=== PATIENT | male | born 1980 | race Caucasian/White ===

== ENCOUNTER 2020-05-16 10:53 | Outpatient (CLI) | payer BC, SELFPAY ==
[2020-05-16 13:04] LABS: D Dimer 0.31 ug/mIFEU (0-0.59)
== END 2020-05-16 10:54 | disposition home or self-care (01) ==
LOC: LAB 10:58
PROVIDERS: Visit Provider Nurse Practitioner Family
DX: R53.1 Weakness (principal); Z86.718 Personal history of other venous thrombosis and embolism
CPT/HCPCS: 85378

== ENCOUNTER 2020-10-04 16:00 | Emergency (ER) | payer BC, SELFPAY ==
[2020-10-04 16:12] VITALS: BP 122/79; PULSE 58; RESP 18; TEMP 36.6; O2SAT 99; BMI 38.0
--- NOTE | 2020-10-04 17:29 | ECG_ITS ---
[facility] Test Date: 2020-10-04 Pat Name: Jaydon Marin Department: Room: Gender: Male Competency Evaluated Nurse Aide: : 1980 Requested By: Jacoby Verde Order Number: [id number] Raissa MD: Will Willett M.D. Measurements Intervals [place] Rate: 49 P: 64 MI: 180 QRS: 68 QRSD: 104 T: 53 QT: 430 QTc: 392 Interpretive Statements SINUS BRADYCARDIA POSSIBLE INFERIOR MYOCARDIAL INFARCTION , PROBABLY OLD [30 ms Q WAVE IN II/aVF] Compared to ECG 06/29/2019 21:07:38 Myocardial infarct finding now present Electronically Signed On 10-05-2020 19:19:16 SAUSAGE COOKER by Will Willett M.D. [id number]
--- NOTE | 2020-10-04 17:35 | ED_ITS ---
HPI - Dizziness General: Chief Complaint: Dizziness Stated Complaint: DIZZY Time Seen by Provider: 10/04/20 17:26 History of Present Illness: HPI Narrative: Patient is a 40-year-old male who comes to the ED with dizziness. Patient says this started approximately 2 days ago. He reports feeling dizzy when he is up and ambulating. Dizziness is described as a spinning around the room. He says symptoms and dizziness get worse when he turns his head to the left or right. This morning when he woke up patient said he was sitting at the head of his bed and got really dizzy and had a syncopal episode. He fell back onto his bed from sitting position on bed so denies any head trauma or headaches. He states the syncopal episode was very brief and when he returned to consciousness he felt normal on at his baseline. Patient says for the past couple days he has been drinking a lot of coffee and not a lot of water or other fluids. Denies any seizure activity. Denies chest pain, shortness of breath, numbness or tingling to extremities or face, weakness to extremities or face, headache or vision changes. Associated symptoms: Denies chest pain, chills, headache(s), nausea, nasal congestion, palpitations or vomiting Associated neuro symptoms: Deny numbness in extremities Review of Systems Const: Denies: fever(s), chills or fatigue Eyes: Denies: change in vision or eye discomfort ENMT: Denies: throat pain, odynophagia, nasal discharge or nasal congestion Card: Reports: syncope (1 brief syncopal episode.); Denies: chest pain, palpitations, edema, swelling of feet/ankles, dyspnea on exertion or orthopnea Resp: Denies: dyspnea, productive cough or non-productive cough GI: Denies: abdominal pain, nausea, vomiting, diarrhea, constipation or hematochezia : Denies: flank pain, difficulty urinating, dysuria or hematuria Musc: Denies: neck pain, back pain or extremity swelling Skin/Breast: Denies: rash or new lesions Neuro: Reports: dizziness and vertigo; Denies: headache(s), numbness in extremities, weakness in extremities, sensory changes or seizure-like activity [facility] ED PFSH: Medical History Chronic knee pain Fatigue History of pulmonary embolism (~2005) History of smoking 30 or more pack years Insomnia Mood disorder Explosive Mood disorder Obesity (BMI 35.0-39.9 without comorbidity) PTSD (post-traumatic stress disorder) SOB (shortness of breath) on exertion Family History Other Cancer Diabetes Veronica Gehrig disease Social History Smoking and tobacco status: former smoker Alcohol intake: never Physical Exam Const: COMMON NORMALS: no acute distress, patient oriented x3, healthy appearing and alert GENERAL APPEARANCE: cooperative and comfortable HENMT: COMMON NORMALS: normocephalic HEAD & SCALP: normocephalic MOUTH: Normal oral and palatal mucosa present THROAT: posterior oropharynx normal and uvula midline Eye: COMMON NORMALS: Equal, round and reactive pupils present, EOMs intact bilaterally and conjunctivae normal CONJUNCTIVA: Yes conjunctivae normal PUPIL: Yes Equal, round and reactive pupils present Neck/C-Spine: COMMON NORMALS: supple GENERAL: Yes normal visual inspection Resp: COMMON NORMALS: normal respiratory effort, No retractions, No use of accessory muscles and clear to auscultation bilaterally AUSCULTATION: clear to auscultation bilaterally Cardio: COMMON NORMALS: regular rate, regular rhythm, S1 normal heart sound present, S2 normal heart sound present, No gallops present (Cardio), No clicks present (Cardio), No murmurs present (Cardio) and Peripheral pulses 2+ throughout RATE: regular rate RHYTHM: regular rhythm HEART SOUNDS: S1 normal heart sound present and S2 normal heart sound present PERIPHERAL PULSES: Peripheral pulses 2+ throughout GI: COMMON NORMALS: Normal to inspection, nondistended, normoactive bowel sounds present, Soft to palpation, non-tender and no masses PALPATION: Yes Soft to palpation : COMMON NORMALS: Yes no CVA tenderness BLADDER/KIDNEY EXAM: Yes no CVA tenderness Back/Pelvis: COMMON NORMALS: no CVA tenderness Extremity: COMMON NORMALS: normal to inspection and no pedal edema Neuro: COMMON NORMALS: patient oriented x3, CN's II-XII intact bilaterally, moves all extremities and no focal motor deficits SENSORIUM/ORIENTATION: Yes alert SPEECH: speech normal MOTOR EXAM: 5/5 motor strength present throughout Skin: GENERAL SKIN EXAM: dry skin Course Vital Signs: Vital signs: Vital Signs Temperature 97.8 F 10/04/20 16:12 Pulse Rate 51 L 10/04/20 21:00 Respiratory Rate 13 10/04/20 21:00 Blood Pressure 121/97 10/04/20 21:00 Pulse Oximetry 99 10/04/20 21:00 MDM - Dizziness MDM Narrative: Medical decision making narrative: Patient is a 40-year-old male who comes to the ED with dizziness and syncopal episode. He describes dizziness as positional and spinning around the room. He did highlight that he is not drink much water over the past couple days and has been drinking a lot of coffee. Patient denies any chest pain, shortness of breath or any other neuro symptoms. He had a syncopal episode while sitting on his bed after he got up in the morning due to spinning. Exam shows a healthy 40-year-old male in no acute distress or pain. He appears nontoxic. Neuro exam normal and lungs clear to auscultation bilaterally. CBC was unremarkable. Sodium 131 and the rest of CMP was unremarkable. EKG showed no acute signs of [place] and troponin negative. Head CT showed no acute findings. Patient was given IV fluids 1 L and a dose of meclizine. Patient says his symptoms of dizziness improved. Patient was diagnosed with postural dizziness with near syncope and told to follow-up with his PCP in 7 to 10 days for reevaluation. He was discharged with a prescription for meclizine. Return to ED precautions given. Patient understood agree with plan. Lab Data: Attestation: I reviewed the patient's lab results. Labs: Lab Results 10/04/20 10/04/20 10/04/20 Range/Units 17:54 17:54 17:54 WBC 7.4 (4.0-10.0) 10^3/ uL RBC 4.96 (4.1-5.3) 10^6/u L Hgb 14.8 (11.7-16.6) g/dL Hct 43.8 (42.0-52.0) % MCV 88.3 (80-94) fL MCH 29.8 (28.0-34.0) pg MCHC 33.8 (30.0-36.0) g/dL RDW 13.4 (12.1-15.1) % Plt Count 275 (130-400) 10^3/c mm MPV 9.7 (7.4-10.4) fL Neut % (Auto) 60.4 % Lymph % (Auto) 29.4 % [place] % (Auto) 7.8 % Eos % (Auto) 1.6 % Baso % (Auto) 0.5 % Neut # (Auto) 4.44 (1.8-7.7) 10^3/u L Lymph # (Auto) 2.2 (0.8-4.8) 10^3/u L [place] # (Auto) 0.6 (0.2-0.9) 10^3/u L Eos # (Auto) 0.1 (0.0-0.8) 10^3/u L Baso # (Auto) 0.0 (0.0-0.1) 10^3/u L Nucleated RBC % (a uto) 0 % Nucleated RBCs # 0.0 /100WBC Sodium 131 L (136-145) mmol/L Potassium 3.8 (3.5-5.1) mmol/L Chloride 93 L (98-107) mmol/L Carbon Dioxide 29 (22-29) mmol/L Anion Gap 12.8 (5-19) BUN 6 (6-20) mg/dL Creatinine 0.6 L (0.7-1.2) mg/dL GFR Calculation 148.5 H (90-130) mL/min Glucose 90 (65-115) mg/dL Calculated Osmolal ity 269 L (285-295) mOsm/k g Calcium 8.7 (8.5-10.5) mg/dL Total Bilirubin 0.3 (0.15-1.2) mg/dL AST 15 (0-40) U/L ALT 17 (0-41) U/L Alkaline Phosphata se 94 (40-130) IU/L Troponin T Gen 5 n g/L 6 (0-15) ng/L Total Protein 7.5 (6.6-8.7) g/dL Albumin 4.5 (3.5-5.2) g/dL Globulin 3.0 (1.3-4.6) g/dL Imaging Data^: CXR: Attestation: I personally reviewed and interpreted this imaging study as follows: Radiologist's impression: [address] [address] XRay Report Signed Patient: Jaydon Marin Unit #: [id number] : 1980 Age/Sex: 40 / M ADM Date: 10/04/20 Loc: ER Room/Bed: Attending Dr: Ordering Provider/Ordering MD: Jacoby Verde Date of Service: 10/04/20 Procedure(s): XR chest 1V portable [id number] Accession Number(s): [id number] Report Number: [id number] PROCEDURE INFORMATION: Exam: XR Chest, 1 View Exam date and time: 10/04/2020 6:04 PM Age: 40 years old Clinical indication: Other: Dizzy/syncope; Additional info: Dizziness/syncope TECHNIQUE: Imaging protocol: XR of the chest Views: 1 view. COMPARISON: CR Chest 1 [place] [id number] 06/29/2019 6:32 PM FINDINGS: Lungs: Well inflated and clear. Pleural spaces: Unremarkable. No pleural effusion. No pneumothorax. Heart/Mediastinum: The cardiac shadow is borderline enlarged. Bones/joints: No acute abnormality. XR/XR chest 1V portable [id number] IMPRESSION: Borderline enlargement of the cardiac shadow. Otherwise normal exam. Dictated By: Hussein Barnes Signed By: Hussein Barnes Signed Date/Time: 10/04/201903 DD/ 01 CT Head: Attestation: I personally reviewed and interpreted this imaging study as follows: Radiologist's impression: [address] [address] [address] Scan Report Signed Patient: Jaydon Marin Unit #: [id number] : 1980 Age/Sex: 40 / M ADM Date: 10/04/20 Loc: ER Room/Bed: Attending Dr: Ordering Provider/Ordering MD: Jacoby Verde Date of Service: 10/04/20 Procedure(s): CT head wo con* [id number] Accession Number(s): [id number] Report Number: [id number] PROCEDURE INFORMATION: Exam: CT Head Without Contrast Exam date and time: 10/04/2020 6:08 PM Age: 40 years old Clinical indication: Patient HX: Dizziness x 2 days TECHNIQUE: Imaging protocol: Computed tomography of the head without contrast. Radiation optimization: All CT scans at this facility use at least one of these dose optimization techniques: automated exposure control; mA and/or kV adjustment per patient size (includes targeted exams where dose is matched to clinical indication); or iterative reconstruction. COMPARISON: CT head wo con* [id number] 09/10/2017 6:42 PM RADIATION DOSE METRICS: Total DLP (mGy-cm): 907.21 FINDINGS: Brain: No evidence of acute infarct. No mass or mass effect. No intra axial hemorrhage. No extra axial fluid collection or hemorrhage. Cerebral ventricles: Symmetric and without enlargement. Bones/joints: No acute fracture. Paranasal sinuses: Visualized sinuses are well aerated. Mastoid air cells: Visualized mastoid air cells are well aerated. Soft tissues: No concerning abnormalities. CT/CT head wo con* [id number] IMPRESSION: No acute intracranial abnormality. Radiation Dose CTDIVOL = (mGy): DLP = 907.21 (mGy-cm) Dictated By: Hussein Barnes Signed By: Hussein Barnes Signed Date/Time: 10/04/201903 DD/ 02 EKG Data^: EKG 1: Attestation: I personally reviewed and interpreted this EKG as follows: EKG interpretation date: 10/04/20 Interpretation: Sinus bradycardia, 49 bpm, no ST segment elevation or depression seen. Discharge Plan Discharge Patient Disposition: Home Clinical Impression: Postural dizziness with near syncope Condition: Stable Prescriptions: New meclizine 25 mg tablet 25 mg PO BID PRN (Reason: dizziness) Qty: 30 RF: 0 No Action oxcarbazepine 300 mg tablet See Rx Instructions .ROUTE .COMPLEX RF: 0 diazepam 10 mg tablet 10 mg PO QID@06,10,14,18 RF: 0 trazodone 300 mg tablet 300 mg PO BEDTIME@2200 RF: 0 Discharge Orders: Discharge ED (Routine); Ordered 10/04/20 Ordered By: Jacoby Verde Referrals: Cathleen Dillard DO [Primary Care Provider] - Discharge Diet: Regular Discharge Activity: Increase activity as tolerated Patient Instructions: Benign Paroxysmal Positional Vertigo (ED), Dizziness (ED) Activity Restrictions/Additional Instructions: Follow-up with medical provider as directed in 7 to 10 days for reevaluation. Make sure you are drinking plenty of fluids and staying hydrated. Cut back on caffeinated beverages daily. Take medications as prescribed. Return to the ER or your medical provider if condition worsens. Please read and understand discharge instructions. If any questions, please ask. Coding Level of Care Code ED Block Piler for [place] Exam Comprehensive
--- NOTE | 2020-10-04 17:49 | XRR_ITS ---
PROCEDURE INFORMATION: Exam: XR Chest, 1 View Exam date and time: 10/04/2020 6:04 PM Age: 40 years old Clinical indication: Other: Dizzy/syncope; Additional info: Dizziness/syncope TECHNIQUE: Imaging protocol: XR of the chest Views: 1 view. COMPARISON: CR Chest 1 [place] [id number] 06/29/2019 6:32 PM FINDINGS: Lungs: Well inflated and clear. Pleural spaces: Unremarkable. No pleural effusion. No pneumothorax. Heart/Mediastinum: The cardiac shadow is borderline enlarged. Bones/joints: No acute abnormality. XR/XR chest 1V portable [id number] IMPRESSION: Borderline enlargement of the cardiac shadow. Otherwise normal exam.
--- NOTE | 2020-10-04 17:49 | CTR_ITS ---
PROCEDURE INFORMATION: Exam: CT Head Without Contrast Exam date and time: 10/04/2020 6:08 PM Age: 40 years old Clinical indication: Patient HX: Dizziness x 2 days TECHNIQUE: Imaging protocol: Computed tomography of the head without contrast. Radiation optimization: All CT scans at this facility use at least one of these dose optimization techniques: automated exposure control; mA and/or kV adjustment per patient size (includes targeted exams where dose is matched to clinical indication); or iterative reconstruction. COMPARISON: CT head wo con* [id number] 09/10/2017 6:42 PM RADIATION DOSE METRICS: Total DLP (mGy-cm): 907.21 FINDINGS: Brain: No evidence of acute infarct. No mass or mass effect. No intra axial hemorrhage. No extra axial fluid collection or hemorrhage. Cerebral ventricles: Symmetric and without enlargement. Bones/joints: No acute fracture. Paranasal sinuses: Visualized sinuses are well aerated. Mastoid air cells: Visualized mastoid air cells are well aerated. Soft tissues: No concerning abnormalities. CT/CT head wo con* [id number] IMPRESSION: No acute intracranial abnormality. Radiation Dose CTDIVOL = (mGy): DLP = 907.21 (mGy-cm)
[2020-10-04 18:05] LABS: Basophils % 0.5 %; Eosinophils # 0.1 10^3/uL (0.0-0.8); Eosinophils % 1.6 %; Hematocrit 43.8 % (42.0-52.0); Hemoglobin 14.8 g/dL (11.7-16.6); Lymphocytes # 2.2 10^3/uL (0.8-4.8); Lymphocytes % 29.4 %; Mean Corpuscular HGB Conc 33.8 g/dL (30.0-36.0); Mean Corpuscular Hemoglobin 29.8 pg (28.0-34.0); Mean Corpuscular Volume 88.3 fL (80-94); Mean Platelet Volume 9.7 fL (7.4-10.4); Monocytes # 0.6 10^3/uL (0.2-0.9); Monocytes % 7.8 %; Neutrophils # 4.44 10^3/uL (1.8-7.7); Neutrophils % 60.4 %; Nucleated Red Blood Cells % 0 %; Platelet Count 275 10^3/cmm (130-400); Red Blood Count 4.96 10^6/uL (4.1-5.3); Red Cell Distribution Width 13.4 % (12.1-15.1); White Blood Count 7.4 10^3/uL (4.0-10.0)
--- NOTE | 2020-10-04 18:12 | PC.NURSE ---
EKG done at 1752 and shown to ER doctor
[2020-10-04 18:34] LABS: Alanine Aminotransferase 17 U/L (0-41); Albumin Level 4.5 g/dL (3.5-5.2); Alkaline Phosphatase 94 IU/L (40-130); Anion Gap 12.8 (5-19); Aspartate Amino Transferase 15 U/L (0-40); Blood Urea Nitrogen 6 mg/dL (6-20); Calcium 8.7 mg/dL (8.5-10.5); Carbon Dioxide 29 mmol/L (22-29); Chloride 93 mmol/L (98-107); Glomerular Filtration Rate 148.5 mL/min (90-130); Glucose 90 mg/dL (65-115); Osmolality Calculated 269 mOsm/kg (285-295); Potassium 3.8 mmol/L (3.5-5.1); Sodium 131 mmol/L (136-145); Total Bilirubin 0.3 mg/dL (0.15-1.2); Total Protein 7.5 g/dL (6.6-8.7); Troponin T (5th) Once 6 ng/L (0-15)
[2020-10-04 19:18] VITALS: BP 127/78; PULSE 53; RESP 16; O2SAT 100
[2020-10-04] MEDS: sodium chloride 0.9% 1,000 ML 999 ML IV (19:19)
[2020-10-04] MEDS: meclizine 25 mg tablet 50 MG PO (19:20)
[2020-10-04 21:00] VITALS: BP 121/97; PULSE 51; RESP 13; O2SAT 99
== END 2020-10-04 21:01 | disposition home or self-care (01) ==
PROVIDERS: Emergency Provider Physician Assistant; PCP Family Medicine
DX: R42 Dizziness and giddiness (principal); R55 Syncope and collapse; E66.9 Obesity, unspecified; F43.10 Post-traumatic stress disorder, unspecified; Z87.891 Personal history of nicotine dependence
CPT/HCPCS: 70450; 71045; 80053; 84484; 85025; 93005; 96360; 99284; J7030; J8597

== ENCOUNTER 2021-11-21 13:25 | Emergency (ER) | payer BC, SELFPAY ==
[2021-11-21 13:30] VITALS: BP 133/82; PULSE 57; RESP 16; TEMP 36.6; O2SAT 98; BMI 36.2
--- NOTE | 2021-11-21 13:50 | PC.NURSE ---
DR. MELVIN REVIEWED EKG TAKEN IN TRIAGE AT 1338.
[2021-11-21 14:05] VITALS: BP 138/75; PULSE 53; RESP 16; O2SAT 96
--- NOTE | 2021-11-21 14:08 | ECG_ITS ---
[facility] Test Date: 2021-11-21 Pat Name: Jaydon Marin Department: Room: Gender: Male Outcome Analyst: : 1980 Requested By: Godfrey Matta Order Number: [id number] Raissa MD: Will Willett M.D. Measurements Intervals [place] Rate: 58 P: 62 [place]: 170 QRS: 71 QRSD: 105 T: 44 QT: 404 QTc: 400 Interpretive Statements SINUS BRADYCARDIA Compared to ECG 10/04/2020 17:55:58 No significant changes Electronically Signed On 11-21-2021 17:17:35 CDT by Will Willett M.D. [id number]
--- NOTE | 2021-11-21 14:08 | CT_ITS ---
WS: [id number] CT CHEST ANGIOGRAPHY WITH REFORMATS HISTORY: sob TECHNIQUE: Contiguous axial images are obtained through the chest during arterial injection of intrav enous contrast. Images are reconstructed to evaluate the pulmonary arteries. MIP imaging also reviewe d. All CT scans at [facility] use at least one of these dose optimization techniques: automat ed exposure control; mA and/or kV adjustment per patient size (includes targeted exams where dose is matched to clinical indication); or iterative reconstruction. CONTRAST: Omnipaque 350; 91 mL IV. DLP: 629.22 mGy.cm COMPARISON: 09/10/2017 Limited opacification of the pulmonary arteries due to timing of the bolus. No central pulmonary embo lism. Beyond the lobar branches the opacification is variable. No dilated pulmonary artery. No RIGHT heart strain. Normal size aorta. Mild enlargement of the LEFT heart chambers. No mediastinal or hilar adenopathy. No pericardial or pleural effusions. No pneumonia. Upper abdomen is negative. No osseous abnormality. CT/CT angio chest PE protcl [id number] IMPRESSION: No pulmonary embolism identified. Beyond the segmental branches opacification i s limited.
--- NOTE | 2021-11-21 14:10 | W.ED.CHESTPA ---
HPI - Chest Pain General: Chief Complaint: Chest Pain Stated Complaint: Chest pains, coldness in rt arm with pressure Time Seen by Provider: 11/21/21 13:52 History of Present Illness: Patient comes in with chest pain that started yesterday which he describes as sharp pinprick sensation that was in the left side yesterday then went away and now is in the right side of his chest today. States he also feels a cold sensation goes down his arm. He denies any cardiac history, however he was treated for a pulmonary embolism years ago which prompted him to stop smoking. Denies any cold symptoms including fever, cough, congestion, vomiting, diarrhea. Physical exam is unremarkable. Will check labs, CTA chest, EKG, and reassess. Associated symptoms: Deny abdominal pain, dyspnea, fever(s), nausea, palpitations or vomiting Review of Systems Const: Denies: fever(s) or body aches Eyes: Denies: change in vision or blurry vision ENMT: Denies: throat pain or odynophagia Card: Reports: chest pain; Denies: palpitations Resp: Denies: dyspnea or productive cough GI: Denies: abdominal pain, nausea or vomiting : Denies: flank pain or dysuria Musc: Denies: neck pain or back pain Skin/Breast: Denies: rash or pruritus Neuro: Denies: headache(s) or numbness in extremities Psych: Denies: anxiety or change in appetite Endo: Denies: polyuria or excessive sweating PFS ED PFSH: Medical History (Updated 11/21/21 @ 17:01 by Godfrey Matta MD) Chronic knee pain Improved. Fatigue History of pulmonary embolism (~2005) On anticoagulation for 5 years. History of smoking 30 or more pack years Quit in 2005 Insomnia Mood disorder Explosive Mood disorder Obesity (BMI 35.0-39.9 without comorbidity) PTSD (post-traumatic stress disorder) SOB (shortness of breath) on exertion Family History Other Cancer Diabetes Veronica Gehrig disease Social History Smoking and tobacco status: former smoker Alcohol intake: never Physical Exam Const: COMMON NORMALS: no acute distress, patient oriented x3, healthy appearing and alert HENMT: COMMON NORMALS: normocephalic and atraumatic HEAD & SCALP: normocephalic and atraumatic Eye: COMMON NORMALS: Equal, round and reactive pupils present and EOMs intact bilaterally PUPIL: Yes Equal, round and reactive pupils present Neck/C-Spine: COMMON NORMALS: full ROM and supple Resp: COMMON NORMALS: normal respiratory effort, No retractions and No use of accessory muscles Cardio: COMMON NORMALS: regular rate and regular rhythm RATE: regular rate RHYTHM: regular rhythm GI: COMMON NORMALS: Normal to inspection, nondistended, normoactive bowel sounds present, Soft to palpation and non-tender PALPATION: Yes Soft to palpation Back/Pelvis: COMMON NORMALS: thoracic and lumbar spine normal to inspection and no thoracic nor lumbar tenderness Extremity: COMMON NORMALS: normal to inspection and full ROM Neuro: COMMON NORMALS: patient oriented x3 SENSORIUM/ORIENTATION: Yes alert Psych: COMMON NORMALS: mental status grossly normal and cooperative Skin: COMMON NORMALS: no rashes or lesions noted and no wounds GENERAL SKIN EXAM: no rashes or lesions noted Course Vital Signs: Vital signs: Vital Signs Temperature 97.9 F 11/21/21 13:30 Pulse Rate 55 L 11/21/21 14:35 Respiratory Rate 15 11/21/21 14:35 Blood Pressure 115/70 11/21/21 14:35 Pulse Oximetry 97 11/21/21 14:35 MDM - Chest Pain Medical Decision Making Patient comes in with nausea and vomiting as well as generalized weakness. States she was seen here yesterday after a fall and had a negative work-up. States that since then she has continued to have some nausea and does not feel well. States that she has nobody at home to help her so she came to the emergency department to be admitted to the hospital. On physical exam she has dry mucous membranes, and tachycardia. Will check labs, give IV fluids, and reassess. On reassessment I talked to the patient about the test results. Will discharge home at this time with precautions to return for worsening or changing symptoms. Lab Data : 11/21/21 14:15 11/21/21 14:15 Radiology Impressions Chest CTA 11/21/21 14:08 IMPRESSION: No pulmonary embolism identified. Beyond the segmental branches opacification is limited. Laboratory Results WBC 7.4 10^3/uL (4.0-10.0) 11/21/21 14:15 RBC 4.92 10^6/uL (4.1-5.3) 11/21/21 14:15 Hgb 14.5 g/dL (11.7-16.6) 11/21/21 14:15 Hct 43.7 % (42.0-52.0) 11/21/21 14:15 MCV 88.8 fl (80-94) 11/21/21 14:15 MCH 29.5 pg (28.0-34.0) 11/21/21 14:15 MCHC 33.2 g/dL (30.0-36.0) 11/21/21 14:15 RDW 13.7 % (12.1-15.1) 11/21/21 14:15 Plt Count 260 10^3/cmm (130-400) 11/21/21 14:15 MPV 9.6 fL (7.4-10.4) 11/21/21 14:15 Neut % (Auto) 72.6 % 11/21/21 14:15 Lymph % (Auto) 19.6 % 11/21/21 14:15 [place] % (Auto) 6.1 % 11/21/21 14:15 Eos % (Auto) 0.9 % 11/21/21 14:15 Baso % (Auto) 0.5 % 11/21/21 14:15 Neut # (Auto) 5.35 10^3/uL (1.8-7.7) 11/21/21 14:15 Lymph # (Auto) 1.5 10^3/uL (0.8-4.8) 11/21/21 14:15 [place] # (Auto) 0.5 10^3/uL (0.2-0.9) 11/21/21 14:15 Eos # (Auto) 0.1 10^3/uL (0.0-0.8) 11/21/21 14:15 Baso # (Auto) 0.0 10^3/uL (0.0-0.1) 11/21/21 14:15 Nucleated RBC % (auto) 0 % 11/21/21 14:15 Nucleated RBCs # 0.0 /100WBC 11/21/21 14:15 Sodium 130 mmol/L (136-145) L 11/21/21 14:15 Potassium 3.7 mmol/L (3.5-5.1) 11/21/21 14:15 Chloride 93 mmol/L (98-107) L 11/21/21 14:15 Carbon Dioxide 26 mmol/L (22-29) 11/21/21 14:15 Anion Gap 14.7 (5-19) 11/21/21 14:15 BUN 13 mg/dL (6-20) 11/21/21 14:15 Creatinine 0.7 mg/dL (0.7-1.2) 11/21/21 14:15 GFR Calculation 123.7 mL/min (90-130) 11/21/21 14:15 Glucose 96 mg/dL (65-115) 11/21/21 14:15 Calculated Osmolality 270 mOsm/kg (285-295) L 11/21/21 14:15 Calcium 9.2 mg/dL (8.5-10.5) 11/21/21 14:15 Total Bilirubin 0.3 mg/dL (0.15-1.2) 11/21/21 14:15 AST 15 U/L (0-40) 11/21/21 14:15 ALT 15 U/L (0-41) 11/21/21 14:15 Alkaline Phosphatase 68 IU/L (40-130) 11/21/21 14:15 Troponin T Baseline 6 ng/L (0-15) 11/21/21 14:15 Troponin T 120 Minute 6.86 ng/L (0-15) 11/21/21 16:02 Delta Troponin T 0.86 ABS# (0-10) 11/21/21 16:02 Total Protein 6.7 g/dL (6.6-8.7) 11/21/21 14:15 Albumin 4.6 g/dL (3.5-5.2) 11/21/21 14:15 Globulin 2.1 g/dL (1.3-4.6) 11/21/21 14:15 Discharge Plan Discharge Patient Disposition: Home Clinical Impression: Nonspecific chest pain Condition: Stable Prescriptions: No Action oxcarbazepine 300 mg tablet 300 mg PO BID 0RF diazepam 10 mg tablet 10 mg PO QID@06,10,14,18 0RF trazodone 300 mg tablet 300 mg PO BEDTIME@2200 0RF Fiber Gummies 2 gram Tablet,Chewable 2 g PO DAILY 0RF Discharge Orders: Discharge ED (Routine); Ordered 11/21/21 Ordered By: Godfrey Matta Referrals: Cathleen Dillard DO [Primary Care Provider] - Coding Level of Care Code ED Senior Accounting Specialist for Chg Fwd Exam Comprehensive
[2021-11-21 14:29] LABS: Basophils % 0.5 %; Eosinophils # 0.1 10^3/uL (0.0-0.8); Eosinophils % 0.9 %; Hematocrit 43.7 % (42.0-52.0); Hemoglobin 14.5 g/dL (11.7-16.6); Lymphocytes # 1.5 10^3/uL (0.8-4.8); Lymphocytes % 19.6 %; Mean Corpuscular HGB Conc 33.2 g/dL (30.0-36.0); Mean Corpuscular Hemoglobin 29.5 pg (28.0-34.0); Mean Corpuscular Volume 88.8 fl (80-94); Mean Platelet Volume 9.6 fL (7.4-10.4); Monocytes # 0.5 10^3/uL (0.2-0.9); Monocytes % 6.1 %; Neutrophils # 5.35 10^3/uL (1.8-7.7); Neutrophils % 72.6 %; Nucleated Red Blood Cells % 0 %; Platelet Count 260 10^3/cmm (130-400); Red Blood Count 4.92 10^6/uL (4.1-5.3); Red Cell Distribution Width 13.7 % (12.1-15.1); White Blood Count 7.4 10^3/uL (4.0-10.0)
[2021-11-21 14:35] VITALS: BP 115/70; PULSE 55; RESP 15; O2SAT 97
[2021-11-21 14:49] LABS: Alanine Aminotransferase 15 U/L (0-41); Albumin Level 4.6 g/dL (3.5-5.2); Alkaline Phosphatase 68 IU/L (40-130); Anion Gap 14.7 (5-19); Aspartate Amino Transferase 15 U/L (0-40); Blood Urea Nitrogen 13 mg/dL (6-20); Calcium 9.2 mg/dL (8.5-10.5); Carbon Dioxide 26 mmol/L (22-29); Chloride 93 mmol/L (98-107); Globulin 2.1 g/dL (1.3-4.6); Glomerular Filtration Rate 123.7 mL/min (90-130); Glucose 96 mg/dL (65-115); Osmolality Calculated 270 mOsm/kg (285-295); Potassium 3.7 mmol/L (3.5-5.1); Sodium 130 mmol/L (136-145); Total Bilirubin 0.3 mg/dL (0.15-1.2); Total Protein 6.7 g/dL (6.6-8.7); Troponin(5th) Baseline 6 ng/L (0-15)
[2021-11-21 16:36] LABS: Troponin 5 2HR 6.86 ng/L (0-15)
[2021-11-21 16:38] LABS: Troponin 5 2HR Delta 0.86 ABS# (0-10)
== END 2021-11-21 17:20 | disposition home or self-care (01) ==
PROVIDERS: Emergency Provider Emergency Medicine; PCP Family Medicine
DX: R07.9 Chest pain, unspecified (principal); Z87.891 Personal history of nicotine dependence
CPT/HCPCS: 71275; 80053; 84484; 85025; 93005; 99283

== ENCOUNTER 2022-05-25 11:53 | Emergency (ER) | payer OTHER, SELFPAY ==
[2022-05-25 12:02] VITALS: BP 142/88; PULSE 59; RESP 16; TEMP 36.2; O2SAT 99
--- NOTE | 2022-05-25 12:51 | XR_ITS ---
WS: [id number] XR thoracic spine 3V* [id number] REASON FOR EXAM: injury to mid back with pain and tenderness FINDINGS: Normal thoracic spine curvature. No vertebral body abnormality. Intervertebral disc spaces are relatively well-preserved. XR/XR thoracic spine 3V* [id number] IMPRESSION: No acute abnormality.
--- NOTE | 2022-05-25 12:56 | W.ED.BACK ---
HPI - Back Pain/Injury General: Chief Complaint: Back Pain/Injury Stated Complaint: Abd/back/neck pain from work accident Time Seen by Provider: 05/25/22 12:08 History of Present Illness: Patient is a 41-year-old male comes to the ED with back pain. Symptoms started today. 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 Since injury earlier this morning he has had increasing pain in his mid back region that radiates around to his right flank. Symptoms worsen with any kind of movement of torso. Denies any nausea/vomiting, bladder or bowel symptoms. He has not taken anything for pain before coming to the ED. Denies any cauda equina symptoms. Associated symptoms: Deny abdominal pain, chills, dysuria, fatigue, fever(s), hematuria, nausea or vomiting Review of Systems Const: Denies: fever(s), chills or fatigue Eyes: Denies: change in vision or eye discomfort ENMT: Denies: throat pain, odynophagia, nasal discharge or nasal congestion Card: Denies: chest pain, palpitations, edema, swelling of feet/ankles, dyspnea on exertion or orthopnea Resp: Denies: dyspnea, productive cough or non-productive cough GI: Denies: abdominal pain, nausea, vomiting, diarrhea, constipation or hematochezia : Denies: flank pain, difficulty urinating, dysuria or hematuria Musc: Reports: back pain; Denies: neck pain or extremity swelling Skin/Breast: Denies: rash or new lesions Neuro: Denies: headache(s), numbness in extremities or weakness in extremities PFS ED PFSH: Medical History Chronic knee pain Improved. Fatigue History of pulmonary embolism (~2005) On anticoagulation for 5 years. History of smoking 30 or more pack years Quit in 2005 Insomnia Mood disorder Explosive Mood disorder No pertinent family history Obesity (BMI 35.0-39.9 without comorbidity) PTSD (post-traumatic stress disorder) SOB (shortness of breath) on exertion Family History Other Cancer Diabetes Veronica Gehrig disease Social History Smoking and tobacco status: former smoker Alcohol intake: never Physical Exam Const: COMMON NORMALS: no acute distress, patient oriented x3, healthy appearing and alert GENERAL APPEARANCE: cooperative and comfortable HENMT: COMMON NORMALS: normocephalic HEAD & SCALP: normocephalic MOUTH: Normal oral and palatal mucosa present THROAT: posterior oropharynx normal and uvula midline Neck/C-Spine: COMMON NORMALS: supple GENERAL: Yes normal visual inspection Resp: COMMON NORMALS: normal respiratory effort, No retractions, No use of accessory muscles and clear to auscultation bilaterally AUSCULTATION: clear to auscultation bilaterally Cardio: COMMON NORMALS: regular rate, regular rhythm, S1 normal heart sound present, S2 normal heart sound present, No gallops present (Cardio), No clicks present (Cardio), No murmurs present (Cardio) and Peripheral pulses 2+ throughout RATE: regular rate RHYTHM: regular rhythm HEART SOUNDS: S1 normal heart sound present and S2 normal heart sound present PERIPHERAL PULSES: Peripheral pulses 2+ throughout GI: COMMON NORMALS: Normal to inspection, nondistended, normoactive bowel sounds present, Soft to palpation, non-tender and no masses PALPATION: Yes Soft to palpation : COMMON NORMALS: Yes no CVA tenderness BLADDER/KIDNEY EXAM: Yes no CVA tenderness Back/Pelvis: COMMON NORMALS: no CVA tenderness THORACIC SPINE/UPPER BACK: Yes pain with ROM, Yes thoracic spinal tenderness T-spine tenderness location: T6, T7 and T8 and Yes paraspinal muscle tenderness Thoracic paraspinal muscle tenderness: bilateral Extremity: COMMON NORMALS: normal to inspection Neuro: COMMON NORMALS: patient oriented x3 SENSORIUM/ORIENTATION: Yes alert GAIT: Yes Normal gait present Skin: GENERAL SKIN EXAM: dry skin Course Vital Signs: Vital signs: Vital Signs Temperature 97.1 F L 05/25/22 12:02 Pulse Rate 59 L 05/25/22 12:02 Respiratory Rate 16 05/25/22 12:02 Blood Pressure 142/88 05/25/22 12:02 Pulse Oximetry 99 05/25/22 12:02 Oxygen Delivery Me thod 05/25/22 12:02 MDM - Back Pain/Injury Medical Decision Making Patient is a 41-year-old male comes to the ED with back pain. Symptoms started today. 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 Denies any cauda equina symptoms. Vitals stable. Exam of patient shows some T-spine tenderness around T6-7 and 8 along with paraspinal muscle tenderness of the T spine as well. X-ray of thoracic spine showed no acute abnormality. Patient was given dose of Toradol and Norflex here in the ED. He was stable for discharge home and diagnosed with strain of thoracic region and discharged home with a prescription for Celebrex and methocarbamol. Follow-up with PCP in the next week for reevaluation. Return to ED precautions given. Patient understood and agreed with plan. Labs Radiology Impressions Thoracic Spine X-Ray 05/25/22 12:51 IMPRESSION: No acute abnormality. Discharge Plan Discharge Patient Disposition: Home Clinical Impression: Strain of thoracic region Qualifiers: Encounter type: initial encounter Qualified Code(s): S29.019A - Strain of muscle and tendon of unspecified wall of thorax, initial encounter Condition: Stable Prescriptions: New methocarbamol 750 mg tablet 750 mg PO Q8H PRN (Reason: muscle spasms and pain) Qty: 20 0RF Celebrex 100 mg capsule 100 mg PO BID PRN (Reason: pain) Qty: 20 0RF No Action oxcarbazepine 300 mg tablet 300 mg PO BID diazepam 10 mg tablet 10 mg PO QID@06,10,14,18 trazodone 300 mg tablet 300 mg PO BEDTIME@2200 alprazolam [Xanax XR] 1 mg tablet extended release 24 hr 1 mg PO QID Discharge Orders: Discharge ED (Routine); Ordered 05/25/22 Ordered By: Jacoby Verde Referrals: Cathleen Dillard DO [Primary Care Provider] - Discharge Diet: Regular Discharge Activity: Increase activity as tolerated Patient Instructions: Muscle Strain (DC), Back Pain (ED) Activity Restrictions/Additional Instructions: Follow-up with medical provider as directed in the next 5 to 7 days reevaluation. Take medications as prescribed. Return to the ER or your medical provider if condition worsens. Please read and understand discharge instructions. Thank you for choosing [facility] for your healthcare needs today. Please realize this is an emergency room and that we are providing you with a medical screening exam and this may not be complete and all inclusive of all the testing and or work up that you may need to determine your ailment or severity of your illness. It is very important that you follow up as instructed or that you return to the Emergency Department should you have concerns or if your condition changes or worsens in any way. Stand Alone Forms: Work/School Release Coding Level of Care Code ED [employer] for [place] Exam Comprehensive
[2022-05-25] MEDS: ketorolac 60 mg/2 mL INJ IM (13:04)
[2022-05-25] MEDS: orphenadrine 30 mg/mL Inj 2 mL 60 MG IM (13:30)
== END 2022-05-25 14:01 | disposition home or self-care (01) ==
PROVIDERS: Emergency Provider Physician Assistant; PCP Family Medicine
DX: S29.019A Strain of muscle and tendon of unspecified wall of thorax, initial encounter (principal); E66.9 Obesity, unspecified; Z68.31 Body mass index [BMI] 31.0-31.9, adult; Z87.891 Personal history of nicotine dependence; X50.0XXA Overexertion from strenuous movement or load, initial encounter
CPT/HCPCS: 72072; 96372; 99284; J1885; J2360

== ENCOUNTER 2022-12-04 11:43 | Emergency (ER) | payer OTHER, SELFPAY ==
[2022-12-04 12:14] VITALS: BP 110/65; PULSE 53; RESP 16; TEMP 36.3; O2SAT 97; BMI 30.5
--- NOTE | 2022-12-04 12:35 | W.ED.NECK ---
HPI - Neck Pain/Injury General: Chief Complaint: Neck Pain/Injury Stated Complaint: neck injury Time Seen by Provider: 12/04/22 11:49 Source: patient Mode of arrival: ambulatory Limitations: no limitations History of Present Illness: Patient is a 42-year-old male who presents to the ED today with a Worker's Comp injury of neck pain. 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 Patient states since then he has had pain to the back of his neck mainly to the right side and down into his right shoulder. Pain seems to be worse with movement of the right shoulder and range of motion of the neck. He denies numbness, tingling, loss of sensation to the upper extremities. No other neurologic deficits or complaints. MD complaint: neck pain and upper back pain Onset (ago): hour(s) Place: work Radiation: right lateral and upper back Severity: moderate Duration: constant Relieving factors: none Exacerbating factors: movement of extremity and movement of neck Associated symptoms: Reports no associated symptoms; Denies headache(s) Treatments prior to arrival: ibuprofen Review of Systems Eyes: Denies: change in vision, blurry vision, floaters or seeing flashes ENMT: Denies: tinnitus Card: Denies: chest pain Resp: Denies: dyspnea Musc: Reports: neck pain and back pain; Denies: extremity pain, extremity swelling, joint pain or joint swelling Neuro: Denies: headache(s), numbness in extremities, weakness in extremities or sensory changes PFS ED PFSH: Medical History Chronic knee pain Improved. Fatigue History of pulmonary embolism (~2005) On anticoagulation for 5 years. History of smoking 30 or more pack years Quit in 2005 Insomnia Mood disorder Explosive Mood disorder No pertinent family history Obesity (BMI 35.0-39.9 without comorbidity) PTSD (post-traumatic stress disorder) SOB (shortness of breath) on exertion Family History Other Cancer Diabetes Veronica Gehrig disease Social History Smoking and tobacco status: former smoker Alcohol intake: never Physical Exam Const: COMMON NORMALS: no acute distress, average body habitus, patient oriented x3, no limitations, healthy appearing, alert and well nourished GENERAL APPEARANCE: cooperative ORIENTATION/CONSCIOUSNESS: Yes awake, Yes oriented to person, Yes oriented to place and Yes oriented to time HENMT: COMMON NORMALS: normocephalic and atraumatic HEAD & SCALP: normal to inspection, normocephalic and atraumatic FACE & SINUS: normal facial exam Eye: GENERAL EYE: appearance normal, both eyes and all related structures Neck/C-Spine: COMMON NORMALS: no lymphadenopathy and no meningeal signs GENERAL: Yes normal visual inspection, No anterior neck swelling and No submandibular swelling CERVICAL SPINE: Yes cervical ROM abnormal (limited secondary to pain), Yes pain with cervical ROM, No step off deformity, Yes Paracervical muscle tenderness and Yes Trapezius muscle tenderness Chest: COMMONS NORMALS: normal inspection of the chest and normal palpation of entire chest wall Resp: COMMON NORMALS: normal respiratory effort and clear to auscultation bilaterally AUSCULTATION: clear to auscultation bilaterally Cardio: COMMON NORMALS: regular rate and regular rhythm RATE: regular rate RHYTHM: regular rhythm Back/Pelvis: THORACIC SPINE/UPPER BACK: No thoracic spinal tenderness, Yes paraspinal muscle tenderness and No paraspinal muscle spasm LUMBAR SPINE/LOWER BACK: Yes normal to inspection, No lumbar spinal tenderness, No paraspinal muscle tenderness and No paraspinal muscle spasm OTHER: TTP over R trapezius musculature BACK IMAGE (MALE): 1. TTP; palpation and ROM of neck/shoulder reproduces patient's pain Extremity: COMMON NORMALS: normal to inspection, capillary refill normal, no joint enlargement, no clubbing, cyanosis or edema and no pedal edema GENERAL: Yes normal exam except as noted RIGHT UPPER EXTREMITY: Yes shoulder joint (pain to R lateral neck and to medial edge of scapula) Right shoulder: Yes Right shoulder joint neurovascular exam (normal) Neuro: COMMON NORMALS: patient oriented x3, moves all extremities, no focal motor deficits and no sensory deficits noted SENSORIUM/ORIENTATION: Yes alert, Yes oriented to person, Yes oriented to place and Yes oriented to time MENINGEAL SIGNS: Yes no meningeal signs MOTOR EXAM: 5/5 motor strength present throughout Skin: COMMON NORMALS: no rashes or lesions noted GENERAL SKIN EXAM: no rashes or lesions noted Course Vital Signs: Vital signs: Vital Signs Temperature 97.3 F L 12/04/22 12:14 Pulse Rate 53 L 12/04/22 12:14 Respiratory Rate 16 12/04/22 12:14 Blood Pressure 110/65 12/04/22 12:14 Pulse Oximetry 97 12/04/22 12:14 MDM - Neck Pain/Injury Medical Decision Making History and physical exam is consistent with musculoskeletal strain. He feels better after IM Toradol/Norflex/Dexamethasone. We will place him on NSAID/steroid for home use (he already takes valium daily) and recommend he follow-up with Worker's Comp. as directed. Discharge Plan Discharge Patient Disposition: Home Clinical Impression: Musculoskeletal neck pain Condition: Stable Prescriptions: New diclofenac sodium 50 mg tablet,delayed release (DR/EC) 50 mg PO Q12H PRN (Reason: pain) Qty: 20 0RF methylprednisolone [Medrol (Oc)] 4 mg tablets,dose pack See Rx Instructions .ROUTE .COMPLEX Qty: 21 0RF Rx Instructions: orally per package directions No Action diazepam 10 mg tablet 10 mg PO QID@06,10,14,18 trazodone 300 mg tablet 300 mg PO BEDTIME@2200 alprazolam [Xanax XR] 1 mg tablet extended release 24 hr 1 mg PO QID oxcarbazepine 600 mg tablet See Rx Instructions .ROUTE .COMPLEX Rx Instructions: 600 mg orally in the am amd 1200 mg at bedtime Ventolin HFA 90 mcg/actuation HFA aerosol inhaler 2 puff INHALATION Q4H PRN (Reason: Shortness Of Breath Or Wheezing) Discharge Orders: Discharge ED (Routine); Ordered 12/04/22 Ordered By: Kristi Morales Referrals: Cathleen Dillard DO [Primary Care Provider] - Coding Level of Care Code 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
[2022-12-04] MEDS: ketorolac 60 mg/2 mL INJ IM (12:57)
[2022-12-04] MEDS: orphenadrine 30 mg/mL Inj 2 mL 60 MG IM (12:57)
[2022-12-04] MEDS: dexamethasone 10 mg/mL INJ 8 MG IM (12:57)
--- NOTE | 2022-12-04 14:21 | PC.NURSE ---
Green top collected, skin prep with betadine.
[2022-12-04 14:35] VITALS: RESP 17; O2SAT 98
[2022-12-04 14:46] LABS: Alcohol Level < 10 mg/dL (0-10)
== END 2022-12-04 14:36 | disposition home or self-care (01) ==
PROVIDERS: Emergency Provider Physician Assistant; PCP Family Medicine
DX: M54.2 Cervicalgia (principal); Y99.0 Civilian activity done for income or pay
CPT/HCPCS: 80307; 96372; 99284; J1100; J1885; J2360

== ENCOUNTER 2022-12-06 08:24 | Emergency (ER) | payer OTHER, SELFPAY ==
--- NOTE | 2022-12-06 08:38 | W.ED.NECK ---
HPI - Neck Pain/Injury General: Chief Complaint: Neck Pain/Injury Stated Complaint: Neck injury Time Seen by Provider: 12/06/22 08:31 History of Present Illness: Mr. Marin is a 42-year-old gentleman who presented to the emergency department for neck injury reassessment. He was seen and evaluated on 12/04, he reports being at work and lifting over his head when he had onset of burning pain on the right side of his neck. This pain worsened and seem to be worse with swallowing and any range of motion or palpation. On ED assessment diagnosed with musculoskeletal pain and mildly improved with ED treatment and for discharge for follow-up. Despite home treatments symptoms have worsened. He reports continued right-sided neck pain and cervical spine midline pain. Pain with range of motion and a popping sensation. Denies new associated other neurologic deficits. No history of neck injuries. No other specific changes in health, exacerbating, or alleviating factors identified. Onset (ago): day(s) Place: work Severity: moderate Quality: burning, sharp, aching and other Duration: progressively worsening Relieving factors: none Exacerbating factors: movement of neck and swallowing Context: lifting Associated symptoms: Reports no associated symptoms Review of Systems General: Reports: 10 or more systems reviewed and unremarkable except in HPI and below PFSH ED PFSH: Medical History (Updated 12/09/22 @ 22:11 by Juana Moss MD) Anxiety disorder Chronic knee pain Improved. Fatigue History of pulmonary embolism (~2005) On anticoagulation for 5 years. History of smoking 30 or more pack years Quit in 2005 Insomnia Mood disorder Explosive Mood disorder No pertinent family history Obesity (BMI 35.0-39.9 without comorbidity) PTSD (post-traumatic stress disorder) SOB (shortness of breath) on exertion Family History Other Cancer Diabetes Veronica Gehrig disease Social History Smoking and tobacco status: former smoker Alcohol intake: never Substance/Drug Use: never Physical Exam Const: COMMON NORMALS: alert GENERAL APPEARANCE: cooperative and well developed HENMT: COMMON NORMALS: normocephalic and atraumatic HEAD & SCALP: normocephalic and atraumatic Eye: COMMON NORMALS: conjunctivae normal CONJUNCTIVA: Yes conjunctivae normal SCLERA: sclerae normal Neck/C-Spine: COMMON NORMALS: supple GENERAL: Yes trachea midline OTHER: Tenderness palpation of the spinal and right paraspinal cervical spine. There is no palpable deformity or crepitus. No pain to axial loading. Resp: COMMON NORMALS: clear to auscultation bilaterally EFFORT & INSPECTION: Yes able to speak in complete sentences AUSCULTATION: clear to auscultation bilaterally Cardio: COMMON NORMALS: regular rate and regular rhythm RATE: regular rate RHYTHM: regular rhythm Extremity: GENERAL: Yes normal exam except as noted and No edema Neuro: COMMON NORMALS: moves all extremities SENSORIUM/ORIENTATION: Yes alert and No Orientation impaired Course Vital Signs: Vital signs: Vital Signs Pulse Rate 55 L 12/06/22 13:28 Blood Pressure 136/87 12/06/22 13:28 Pulse Oximetry 92 12/06/22 13:28 Oxygen Delivery Me thod Room Air 12/06/22 11:34 MDM - Neck Pain/Injury Medical Decision Making 42-year-old gentleman presented due to worsening neck pain with prior evaluation suspicious for musculoskeletal pain. Exam as above. Patient is nontoxic and denies infectious symptoms associated with neck pain. CT cervical spine is negative for acute changes, he does have degenerative changes which were discussed. Patient mildly improved with muscle laxer, analgesia, NSAID. Plan to continue outpatient management for strain of the cervical musculature and muscle spasms. Instructions given on need to follow-up with Workmen's Comp. contracted employee health. The results of ED evaluation were discussed with the patient including prescriptions and/or symptomatic cares (if applicable) including appropriate and responsible use, followup plan, and return precautions. The patient verbalized understanding and felt safe for discharge. Medical Records I reviewed the patient's medical records. Lab Data I reviewed the patient's lab results. Radiology Impressions Cervical Spine CT 12/06/22 08:46 IMPRESSION: 1. No acute injury. 2. Degenerative changes of the cervical spine, most prominent at C5-C6. Discharge Plan Discharge Patient Disposition: Home Clinical Impression: Strain of neck muscle, Cervical radiculopathy, Degenerative disc disease, cervical Condition: Stable Prescriptions: No Action diazepam 10 mg tablet 10 mg PO QID@06,10,14,18 trazodone 300 mg tablet 300 mg PO BEDTIME@2200 oxycodone 5 mg tablet 5 mg PO Q8H PRN (Reason: pain) 7 Days Qty: 20 0RF alprazolam [Xanax XR] 1 mg tablet extended release 24 hr 1 mg PO QID oxcarbazepine 600 mg tablet See Rx Instructions .ROUTE .COMPLEX Rx Instructions: 600 mg orally in the am amd 1200 mg at bedtime Ventolin HFA 90 mcg/actuation HFA aerosol inhaler 2 puff INHALATION Q4H PRN (Reason: Shortness Of Breath Or Wheezing) diclofenac sodium 50 mg tablet,delayed release (DR/EC) 50 mg PO Q12H PRN (Reason: pain) Qty: 20 0RF Discharge Orders: Discharge ED (Routine); Ordered 12/06/22 Ordered By: Mark Barksdale Referrals: Cathleen Dillard DO [Primary Care Provider] - Discharge Diet: Usual diet Discharge Activity: Increase activity as tolerated Patient Instructions: Cervical Radiculopathy (ED), Acute Neck Pain (ED), Opioid Safety Activity Restrictions/Additional Instructions: Thank you for visiting the emergency department. You were seen and evaluated for continued neck pain. The exact cause of your symptoms is unclear though most likely still related to musculoskeletal pain and nerve irritation. Please call your employer regarding where to follow-up for occupational medicine. Please follow-up with a primary care provider. I will prescribe oxycodone, use this cautiously as discussed. You may use [id number] medications such as acetaminophen and ibuprofen for pain however please do not exceed the daily recommended dosage as listed on the packaging and please keep in mind that many namebrand medications contain the same active ingredients. Please avoid these medications if previously instructed to do so by another physician due to other underlying medical condition. Return to the emergency department for uncontrolled symptoms despite treatment, any new neurologic symptoms, or anything else that you are concerned about and feel needs emergency department evaluation. 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
[2022-12-06 08:43] VITALS: BP 131/79; PULSE 55; O2SAT 100; BMI 30.5
--- NOTE | 2022-12-06 08:46 | CTR_ITS ---
PROCEDURE INFORMATION: Exam: CT Cervical Spine Without Contrast Exam date and time: 12/06/2022 9:52 AM Age: 42 years old Clinical indication: Neck pain; Additional info: Neck pain, R and midline, worse with rom TECHNIQUE: Imaging protocol: Computed tomography of the cervical spine without contrast. Radiation optimization: All CT scans at this facility use at least one of these dose optimization techniques: automated exposure control; mA and/or kV adjustment per patient size (includes targeted exams where dose is matched to clinical indication); or iterative reconstruction. REPORTING DATA: Count of CT and Cardiac NM exams in prior 12 months: This patient has received 0 known CTs and 0 known cardiac nuclear medicine studies in the 12 months prior to the current study. COMPARISON: CT cervical spin wo con* [id number] 09/10/2017 6:45 PM RADIATION DOSE METRICS: Total DLP (mGy-cm): 205.57 FINDINGS: Bones/joints: Trace levocurvature of the cervical spine is present. There is straightening of the normal cervical lordosis, without listhesis. No fracture identified. Vertebral body heights are well preserved. There is degenerative changes, manifested by intervertebral disc space narrowing and endplate osteophytes, most prominent at C5-C6. No significant disc protrusion. No severe spinal canal stenosis. Lungs: Lung apices are normal. Soft tissues: Unremarkable. CT/CT cervical spin wo con* [id number] IMPRESSION: 1. No acute injury. 2. Degenerative changes of the cervical spine, most prominent at C5-C6.
--- NOTE | 2022-12-06 08:56 | PC.NURSE ---
pt arrived to ER for neck pain, was seen 2 days ago for same symptoms. 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 Pt was dx with muscle pain, given IM injections and discharged home. denies any improvement of symptoms. no new injuries. has not been able to follow up with physician since last ER visit. pt speech clear, speaking in complete sentences without difficulty.
[2022-12-06] MEDS: morphine 4 mg/mL SDV 1 mL IVP (09:25)
--- NOTE | 2022-12-06 09:27 | PC.NURSE ---
verified hydrocodone with pt, reports when he took medication once he felt lightheaded like he was on a rollarcoaster. reviewed allergy with yasmani Zaman to continue with administration of morphine.
[2022-12-06] MEDS: diazePAM 2 mg Tablet PO (11:29)
[2022-12-06] MEDS: ketorolac 30 mg/mL INJ 15 MG IVP (11:30)
[2022-12-06 11:34] VITALS: BP 143/90; PULSE 57; O2SAT 99
[2022-12-06 13:28] VITALS: BP 136/87; PULSE 55; O2SAT 92
== END 2022-12-06 13:25 | disposition home or self-care (01) ==
PROVIDERS: Emergency Provider Emergency Medicine; PCP Family Medicine
DX: S16.1XXA Strain of muscle, fascia and tendon at neck level, initial encounter (principal); M54.12 Radiculopathy, cervical region; M50.322 Other cervical disc degeneration at C5-C6 level; Z87.891 Personal history of nicotine dependence; X50.0XXA Overexertion from strenuous movement or load, initial encounter
CPT/HCPCS: 72125; 96374; 96375; 99285; J1885; J2270

== ENCOUNTER 2022-12-23 06:00 | Outpatient (RCR) | payer OTHER, SELFPAY | END 2023-01-20 23:59 | disposition home or self-care (01) | LOC: SPT 06:00 | PROVIDERS: Visit Provider Family Medicine | DX: S16.1XXD Strain of muscle, fascia and tendon at neck level, subsequent encounter (principal); X58.XXXD Exposure to other specified factors, subsequent encounter | CPT/HCPCS: 97110; 97161; 97530 ==

== ENCOUNTER 2023-01-21 06:00 | Outpatient (RCR) | payer OTHER, SELFPAY | END 2023-02-19 23:59 | disposition home or self-care (01) | LOC: SPT 06:00 | PROVIDERS: PCP Family Medicine; Visit Provider Family Medicine | DX: S16.1XXD Strain of muscle, fascia and tendon at neck level, subsequent encounter (principal); X58.XXXD Exposure to other specified factors, subsequent encounter | CPT/HCPCS: 97110 ==

== ENCOUNTER 2024-01-11 16:00 | Outpatient (CLI) | payer BC, SELFPAY | END 2024-01-11 16:01 | disposition home or self-care (01) | LOC: SLEEP 01-12 10:05 | PROVIDERS: PCP Family Medicine; Visit Provider Family Medicine | DX: G47.30 Sleep apnea, unspecified (principal) | CPT/HCPCS: G0399 ==

== ENCOUNTER 2024-04-27 13:26 | Outpatient (CLI) | payer BC, SELFPAY | END 2024-04-27 13:27 | disposition home or self-care (01) | LOC: RT 13:29 | PROVIDERS: PCP Family Medicine; Visit Provider Family Medicine | DX: R07.89 Other chest pain (principal) | CPT/HCPCS: 94010; 94726; 94729 ==